=== PATIENT | female | born 1940 | race Caucasian/White ===

== ENCOUNTER → 2016-10-24 | Outpatient (CLI) | payer MEDICARE, MEDICAID ==
[~2016-10-24] VITALS: Ht 167.6 cm; Wt 104.5 kg
[~2016-10-24] MED LIST: AMLO-511 PO; BUDE10.22 IH; CHOL10002 PO; CLON0.1T13 PO; FLUT16H NASAL; LINA1TAB5 PO; OMEP20 PO; SINGULAR; TRAM50TA4 PO; VALS1TAB79 PO; VITA1TAB22 PO
[2016-10-24 13:25] VITALS: BP 103/60
== END | disposition home or self-care (01) ==
LOC: SRCNTR 13:01
PROVIDERS: ATTEND Internal Medicine Critical Care Medicine
DX: G47.33 Obstructive sleep apnea (adult) (pediatric) (principal); E11.9 Type 2 diabetes mellitus without complications; I10 Essential (primary) hypertension; J30.9 Allergic rhinitis, unspecified; J45.991 Cough variant asthma; M19.90 Unspecified osteoarthritis, unspecified site
CPT/HCPCS: G0463

== ENCOUNTER 2016-11-03 12:59 | Emergency (ER) | payer MEDICARE, OTHER ==
[~2016-11-03] VITALS: Ht 167.6 cm; Wt 105.0 kg
[~2016-11-03 12:59] MED LIST changes: -BUDE10.22 IH
[2016-11-03] MEDS ORDERED: SITA100 PO (13:08)
[2016-11-03 13:17] LABS: GLUCOSE,POINT OF CARE 151 MG/DL (70-110)
[2016-11-03] MEDS ORDERED: ACETAMINOPHEN/CODEINE 300-30 MG TABLET PO ONE (13:45)
[2016-11-03 16:15] VITALS: BP 140/86
== END 2016-11-03 16:28 | disposition home or self-care (01) ==
LOC: EMS 13:01
DX: M25.561 Pain in right knee (principal); M79.89 Other specified soft tissue disorders; J45.909 Unspecified asthma, uncomplicated; E11.9 Type 2 diabetes mellitus without complications; I10 Essential (primary) hypertension
CPT/HCPCS: 82962; 99284

== ENCOUNTER → 2017-02-24 | Outpatient (CLI) | payer MEDICARE, MEDICAID ==
[~2017-02-24] VITALS: Ht 167.6 cm; Wt 105.5 kg
[~2017-02-24] MED LIST changes: +IBUP-2070 PO; +INFLUENZA VIRUS VACCINE QVS 2017-18 (3YR+)/PF 60 MCG/0.5 ML SYRINGE IM ONE; +SITA100 PO
[2017-02-24 10:49] VITALS: BP 125/91
== END | disposition home or self-care (01) ==
LOC: SRCNTR 10:39
PROVIDERS: ATTEND Internal Medicine Critical Care Medicine
DX: J45.991 Cough variant asthma (principal); G47.33 Obstructive sleep apnea (adult) (pediatric); E11.9 Type 2 diabetes mellitus without complications; I10 Essential (primary) hypertension; J30.9 Allergic rhinitis, unspecified; M19.90 Unspecified osteoarthritis, unspecified site; Z87.891 Personal history of nicotine dependence
CPT/HCPCS: 90471 ×2; 96372; G0463

== ENCOUNTER → 2017-02-25 | Outpatient (CLI) | payer MEDICARE, MEDICAID ==
[~2017-02-25] VITALS: Ht 167.6 cm; Wt 104.5 kg
[~2017-02-25] MED LIST changes: -FLUT16H NASAL; -INFLUENZA VIRUS VACCINE QVS 2017-18 (3YR+)/PF 60 MCG/0.5 ML SYRINGE IM ONE; -SITA100 PO; -TRAM50TA4 PO
[2017-02-25 14:31] VITALS: BP 126/72
== END | disposition home or self-care (01) ==
LOC: SRCNTR 13:55
PROVIDERS: ATTEND Internal Medicine Cardiovascular Disease
DX: E11.9 Type 2 diabetes mellitus without complications (principal); E66.9 Obesity, unspecified; G47.30 Sleep apnea, unspecified; I10 Essential (primary) hypertension; J44.9 Chronic obstructive pulmonary disease, unspecified; E78.5 Hyperlipidemia, unspecified; M19.90 Unspecified osteoarthritis, unspecified site
CPT/HCPCS: 93005; G0463

== ENCOUNTER → 2017-05-06 | Outpatient (CLI) | payer MEDICARE, MEDICAID ==
[~2017-05-06] VITALS: Ht 167.6 cm; Wt 106.0 kg
[2017-05-06 14:35] VITALS: BP 118/69
== END | disposition home or self-care (01) ==
LOC: SRCNTR 14:24
PROVIDERS: ATTEND Internal Medicine Cardiovascular Disease
DX: I10 Essential (primary) hypertension (principal); E11.9 Type 2 diabetes mellitus without complications; E66.9 Obesity, unspecified; G47.30 Sleep apnea, unspecified; M19.90 Unspecified osteoarthritis, unspecified site
CPT/HCPCS: G0463

== ENCOUNTER → 2017-06-26 | Outpatient (CLI) | payer MEDICARE ==
[~2017-06-26] VITALS: Ht 167.6 cm; Wt 104.0 kg
[2017-06-26 11:33] VITALS: BP 131/84
== END | disposition home or self-care (01) ==
LOC: SRCNTR 11:19
PROVIDERS: ATTEND Internal Medicine Critical Care Medicine
DX: G47.33 Obstructive sleep apnea (adult) (pediatric) (principal); E11.9 Type 2 diabetes mellitus without complications; I10 Essential (primary) hypertension; J30.9 Allergic rhinitis, unspecified; J45.991 Cough variant asthma; M25.561 Pain in right knee
CPT/HCPCS: G0463

== ENCOUNTER → 2017-07-04 | Outpatient (CLI) | payer MEDICARE, MEDICAID ==
[~2017-07-04] VITALS: Ht 167.6 cm; Wt 104.0 kg
[2017-07-04 11:57] VITALS: BP 124/78
== END | disposition home or self-care (01) ==
LOC: SRCNTR 11:12
PROVIDERS: ATTEND Internal Medicine Cardiovascular Disease
DX: I10 Essential (primary) hypertension (principal); E11.9 Type 2 diabetes mellitus without complications; E66.9 Obesity, unspecified; G47.30 Sleep apnea, unspecified; M19.90 Unspecified osteoarthritis, unspecified site
CPT/HCPCS: G0463

== ENCOUNTER → 2017-08-20 | Outpatient (CLI) | payer MEDICARE, OTHER | END | disposition home or self-care (01) | LOC: RADPV 14:59 | PROVIDERS: ATTEND Family Medicine | DX: M85.842 Other specified disorders of bone density and structure, left hand (principal) ==

== ENCOUNTER → 2017-09-23 | Outpatient (CLI) | payer MEDICARE, OTHER | END | disposition home or self-care (01) | LOC: RADPV 09:44 | PROVIDERS: ATTEND Internal Medicine Critical Care Medicine | DX: I70.0 Atherosclerosis of aorta (principal); J44.9 Chronic obstructive pulmonary disease, unspecified | CPT/HCPCS: 71046 ==

== ENCOUNTER → 2017-09-29 | Outpatient (CLI) | payer MEDICARE ==
[~2017-09-29] VITALS: Ht 167.6 cm; Wt 104.0 kg
[2017-09-29 15:51] VITALS: BP 103/56
== END | disposition home or self-care (01) ==
LOC: SRCNTR 11:26
PROVIDERS: ATTEND Internal Medicine Critical Care Medicine
DX: I10 Essential (primary) hypertension (principal); E11.9 Type 2 diabetes mellitus without complications; G47.33 Obstructive sleep apnea (adult) (pediatric); J30.9 Allergic rhinitis, unspecified; J45.991 Cough variant asthma; Z83.3 Family history of diabetes mellitus; Z85.828 Personal history of other malignant neoplasm of skin
CPT/HCPCS: G0463

== ENCOUNTER → 2017-11-04 | Outpatient (CLI) | payer MEDICARE, MEDICAID ==
[~2017-11-04] VITALS: Ht 167.6 cm; Wt 103.0 kg
[~2017-11-04] MED LIST changes: +BUDE10.2 IH
[2017-11-04 14:09] VITALS: BP 112/67
== END | disposition home or self-care (01) ==
LOC: SRCNTR 13:45
PROVIDERS: ATTEND Internal Medicine Cardiovascular Disease
DX: I10 Essential (primary) hypertension (principal); G47.30 Sleep apnea, unspecified; E66.9 Obesity, unspecified; E11.9 Type 2 diabetes mellitus without complications; J44.9 Chronic obstructive pulmonary disease, unspecified; M19.90 Unspecified osteoarthritis, unspecified site
CPT/HCPCS: G0463

== ENCOUNTER → 2017-12-31 | Outpatient (CLI) | payer MEDICARE, OTHER | END | disposition home or self-care (01) | LOC: RADPV 09:04 | PROVIDERS: ATTEND Family Medicine | DX: Z01.818 Encounter for other preprocedural examination (principal); M48.062 Spinal stenosis, lumbar region with neurogenic claudication; I70.0 Atherosclerosis of aorta ==

== ENCOUNTER → 2018-01-06 | Outpatient (CLI) | payer MEDICARE, MEDICAID ==
[~2018-01-06] VITALS: Ht 167.6 cm; Wt 103.0 kg
[2018-01-06 15:16] VITALS: BP 126/79
== END | disposition home or self-care (01) ==
LOC: SRCNTR 14:34
PROVIDERS: ATTEND Internal Medicine Cardiovascular Disease
DX: M54.5 Low back pain (principal); M79.609 Pain in unspecified limb; E11.9 Type 2 diabetes mellitus without complications; I10 Essential (primary) hypertension; M19.90 Unspecified osteoarthritis, unspecified site; E66.9 Obesity, unspecified; E78.5 Hyperlipidemia, unspecified
CPT/HCPCS: G0463

== ENCOUNTER → 2018-04-09 | Outpatient (CLI) | payer MEDICARE, MEDICAID ==
[2018-04-09 14:17] VITALS: BP 101/59
== END | disposition home or self-care (01) ==
LOC: SRCNTR 14:14
PROVIDERS: ATTEND Internal Medicine Cardiovascular Disease
DX: I10 Essential (primary) hypertension (principal); E11.9 Type 2 diabetes mellitus without complications; J44.9 Chronic obstructive pulmonary disease, unspecified; M19.90 Unspecified osteoarthritis, unspecified site; E66.9 Obesity, unspecified; M54.5 Low back pain; E78.5 Hyperlipidemia, unspecified
CPT/HCPCS: G0463

== ENCOUNTER → 2018-06-17 | Outpatient (CLI) | payer MEDICARE, MEDICAID ==
[~2018-06-17] VITALS: Ht 167.6 cm; Wt 105.0 kg
[~2018-06-17] MED LIST changes: +CHOL100053 PO; +CYAN500011 PO; +GABA-531 PO; +IRBE300T19 PO
[2018-06-17 10:46] VITALS: BP 124/71
== END | disposition home or self-care (01) ==
LOC: SRCNTR 10:37
PROVIDERS: ATTEND Internal Medicine Cardiovascular Disease
DX: I10 Essential (primary) hypertension (principal); J44.9 Chronic obstructive pulmonary disease, unspecified; E11.9 Type 2 diabetes mellitus without complications; M19.90 Unspecified osteoarthritis, unspecified site; M54.5 Low back pain
CPT/HCPCS: G0463

== ENCOUNTER → 2018-07-03 | Outpatient (CLI) | payer MEDICARE, MEDICAID, OTHER ==
[~2018-07-03] VITALS: Ht 167.6 cm; Wt 105.5 kg
[~2018-07-03] MED LIST changes: -CHOL10002 PO; -VALS1TAB79 PO
[2018-07-03 14:35] VITALS: BP 114/72
== END | disposition home or self-care (01) ==
LOC: SRCNTR 14:26
PROVIDERS: ATTEND Internal Medicine Critical Care Medicine
DX: G47.33 Obstructive sleep apnea (adult) (pediatric) (principal); E11.9 Type 2 diabetes mellitus without complications
CPT/HCPCS: G0463

== ENCOUNTER → 2018-09-11 | Outpatient (CLI) | payer MEDICARE, MEDICAID ==
[~2018-09-11] VITALS: Ht 167.6 cm; Wt 104.0 kg
[2018-09-11 10:32] VITALS: BP 157/94
== END | disposition home or self-care (01) ==
LOC: SRCNTR 10:11
PROVIDERS: ATTEND Internal Medicine Cardiovascular Disease
DX: E11.9 Type 2 diabetes mellitus without complications (principal); J44.9 Chronic obstructive pulmonary disease, unspecified; M19.90 Unspecified osteoarthritis, unspecified site; I10 Essential (primary) hypertension
CPT/HCPCS: G0463

== ENCOUNTER → 2019-05-05 | Outpatient (CLI) | payer MEDICARE, OTHER ==
[~2019-05-05] VITALS: Ht 167.6 cm; Wt 94.0 kg
[~2019-05-05] MED LIST changes: -AMLO-511 PO; +AMLO5TAB9 PO; -CLON0.1T13 PO; +CLON0.2T PO; -GABA-531 PO; -IBUP-2070 PO; +INFLUENZA VIRUS VACCINE QVS 2019-20 (3YR+)/PF 60 MCG/0.5 ML SYRINGE IM ONE; +IRBE300T18 PO; -IRBE300T19 PO; +METO25XL PO; +MIRA25TA PO; +TRAM50TA4 PO
[2019-05-05 11:20] VITALS: BP 128/75
== END | disposition home or self-care (01) ==
LOC: SRCNTR 11:20
PROVIDERS: ATTEND Internal Medicine Critical Care Medicine
DX: Z23 Encounter for immunization (principal); I10 Essential (primary) hypertension; E11.9 Type 2 diabetes mellitus without complications; M19.90 Unspecified osteoarthritis, unspecified site
CPT/HCPCS: 90471; 90686; G0463

== ENCOUNTER → 2019-08-06 | Outpatient (CLI) | payer MEDICARE, OTHER ==
[~2019-08-06] VITALS: Ht 167.6 cm; Wt 91.0 kg
[~2019-08-06] MED LIST changes: -INFLUENZA VIRUS VACCINE QVS 2019-20 (3YR+)/PF 60 MCG/0.5 ML SYRINGE IM ONE
[2019-08-06 11:10] VITALS: BP 108/57
== END | disposition home or self-care (01) ==
LOC: SRCNTR 11:09
PROVIDERS: ATTEND Internal Medicine Cardiovascular Disease
DX: E11.9 Type 2 diabetes mellitus without complications (principal); J44.9 Chronic obstructive pulmonary disease, unspecified; G47.33 Obstructive sleep apnea (adult) (pediatric); I10 Essential (primary) hypertension; M19.90 Unspecified osteoarthritis, unspecified site; M54.5 Low back pain
CPT/HCPCS: G0463

== ENCOUNTER → 2019-08-17 | Outpatient (CLI) | payer MEDICARE, OTHER ==
[~2019-08-17] MED LIST changes: -TRAM50TA4 PO
== END | disposition home or self-care (01) ==
LOC: RADPV 11:19
PROVIDERS: ATTEND Nurse Practitioner
DX: Z01.811 Encounter for preprocedural respiratory examination (principal); M46.04 Spinal enthesopathy, thoracic region; I70.0 Atherosclerosis of aorta

== ENCOUNTER → 2019-12-15 | Outpatient (CLI) | payer MEDICARE, OTHER ==
[~2019-12-15] MED LIST changes: +AMLO-257 PO; -AMLO5TAB9 PO
== END | disposition home or self-care (01) ==
LOC: SRCNTR 11:47
PROVIDERS: ATTEND Internal Medicine Cardiovascular Disease
DX: J44.9 Chronic obstructive pulmonary disease, unspecified (principal); I10 Essential (primary) hypertension; E11.9 Type 2 diabetes mellitus without complications; M19.90 Unspecified osteoarthritis, unspecified site; M54.5 Low back pain; Z79.899 Other long term (current) drug therapy
CPT/HCPCS: 99441

== ENCOUNTER → 2020-02-02 | Outpatient (CLI) | payer MEDICARE, OTHER ==
[~2020-02-02] VITALS: Ht 154.9 cm; Wt 97.2 kg
[2020-02-02 10:49] VITALS: BP 125/76
== END | disposition home or self-care (01) ==
LOC: SRCNTR 10:49
PROVIDERS: ATTEND Internal Medicine Cardiovascular Disease
DX: J44.9 Chronic obstructive pulmonary disease, unspecified (principal); I10 Essential (primary) hypertension; E11.9 Type 2 diabetes mellitus without complications; M19.90 Unspecified osteoarthritis, unspecified site; Z79.899 Other long term (current) drug therapy
CPT/HCPCS: G0463; Z7500

== ENCOUNTER → 2020-04-03 | Outpatient (CLI) | payer MEDICARE, OTHER ==
[~2020-04-03] VITALS: Ht 167.6 cm; Wt 97.0 kg
[~2020-04-03] MED LIST changes: +ACET-66 PO; +INFLUENZA VIRUS VACCINE QVS 2020-21 (6MO+)/PF 60 MCG/0.5 ML SYRINGE IM ONE
[2020-04-03 10:55] VITALS: BP 128/64
== END | disposition home or self-care (01) ==
LOC: SRCNTR 10:50
PROVIDERS: ATTEND Internal Medicine Cardiovascular Disease
DX: J44.9 Chronic obstructive pulmonary disease, unspecified (principal); E11.9 Type 2 diabetes mellitus without complications; I10 Essential (primary) hypertension; M19.90 Unspecified osteoarthritis, unspecified site; C44.90 Unspecified malignant neoplasm of skin, unspecified; Z23 Encounter for immunization
CPT/HCPCS: 90471; 90686; G0463

== ENCOUNTER → 2020-05-23 | Outpatient (CLI) | payer MEDICARE, OTHER ==
[~2020-05-23] MED LIST changes: -INFLUENZA VIRUS VACCINE QVS 2020-21 (6MO+)/PF 60 MCG/0.5 ML SYRINGE IM ONE; -MIRA25TA PO
[2020-05-23 15:14] VITALS: BP 124/66
== END | disposition home or self-care (01) ==
LOC: SRCNTR 10:41
PROVIDERS: ATTEND Internal Medicine Critical Care Medicine
DX: G47.33 Obstructive sleep apnea (adult) (pediatric) (principal); J45.991 Cough variant asthma; J30.9 Allergic rhinitis, unspecified; I10 Essential (primary) hypertension; E11.9 Type 2 diabetes mellitus without complications
CPT/HCPCS: G0463

== ENCOUNTER → 2020-06-21 | Outpatient (CLI) | payer MEDICARE, OTHER ==
[~2020-06-21] VITALS: Ht 167.6 cm; Wt 99.0 kg
[2020-06-21 10:42] VITALS: BP 137/69
== END | disposition home or self-care (01) ==
LOC: SRCNTR 10:29
PROVIDERS: ATTEND Internal Medicine Cardiovascular Disease
DX: E11.9 Type 2 diabetes mellitus without complications (principal); I10 Essential (primary) hypertension; J44.9 Chronic obstructive pulmonary disease, unspecified; M19.91 Primary osteoarthritis, unspecified site; D04.9 Carcinoma in situ of skin, unspecified
CPT/HCPCS: G0463

== ENCOUNTER → 2020-08-23 | Outpatient (CLI) | payer MEDICARE, OTHER ==
[~2020-08-23] MED LIST changes: +HYDR25TA2 PO; +IBUP-2070 PO
== END | disposition home or self-care (01) ==
LOC: RADPV 11:17
PROVIDERS: ATTEND Internal Medicine Critical Care Medicine
DX: I70.0 Atherosclerosis of aorta (principal); J98.6 Disorders of diaphragm; J44.9 Chronic obstructive pulmonary disease, unspecified
CPT/HCPCS: 71046; 71046-TC

== ENCOUNTER → 2020-08-23 | Outpatient (CLI) | payer MEDICARE, OTHER ==
[~2020-08-23] VITALS: Ht 167.6 cm; Wt 98.3 kg
[2020-08-23 10:36] VITALS: BP 128/72
== END | disposition home or self-care (01) ==
LOC: SRCNTR 10:27
PROVIDERS: ATTEND Internal Medicine Cardiovascular Disease
DX: E11.9 Type 2 diabetes mellitus without complications (principal); J44.9 Chronic obstructive pulmonary disease, unspecified; I10 Essential (primary) hypertension; M19.90 Unspecified osteoarthritis, unspecified site
CPT/HCPCS: G0463

== ENCOUNTER → 2020-11-14 | Outpatient (CLI) | payer MEDICARE, OTHER ==
[~2020-11-14] VITALS: Ht 167.6 cm; Wt 98.4 kg
[2020-11-14 14:00] VITALS: BP 111/65
== END | disposition home or self-care (01) ==
LOC: SRCNTR 13:28
PROVIDERS: ATTEND Internal Medicine Cardiovascular Disease
DX: E11.9 Type 2 diabetes mellitus without complications (principal); J44.9 Chronic obstructive pulmonary disease, unspecified; I10 Essential (primary) hypertension; M19.90 Unspecified osteoarthritis, unspecified site; M54.5 Low back pain
CPT/HCPCS: G0463

== ENCOUNTER → 2021-01-26 | Outpatient (CLI) | payer MEDICARE, OTHER ==
[~2021-01-26] VITALS: Ht 167.6 cm; Wt 99.2 kg
[~2021-01-26] MED LIST changes: +DOCU-350 PO
[2021-01-26 11:33] VITALS: BP 130/70
== END | disposition home or self-care (01) ==
LOC: SRCNTR 11:17
PROVIDERS: ATTEND Internal Medicine Cardiovascular Disease
DX: E11.9 Type 2 diabetes mellitus without complications (principal); I10 Essential (primary) hypertension; J44.9 Chronic obstructive pulmonary disease, unspecified; M19.90 Unspecified osteoarthritis, unspecified site; M54.5 Low back pain
CPT/HCPCS: G0463

== ENCOUNTER → 2021-02-21 | Outpatient (CLI) | payer MEDICARE, OTHER ==
[~2021-02-21] VITALS: Ht 167.6 cm; Wt 100.0 kg
[~2021-02-21] MED LIST changes: +ATOR10TA84 PO
[2021-02-21 11:18] VITALS: BP 119/68
== END | disposition home or self-care (01) ==
LOC: SRCNTR 10:28
PROVIDERS: ATTEND Internal Medicine Critical Care Medicine
DX: G47.33 Obstructive sleep apnea (adult) (pediatric) (principal); E11.9 Type 2 diabetes mellitus without complications; I10 Essential (primary) hypertension; J30.9 Allergic rhinitis, unspecified; J45.991 Cough variant asthma
CPT/HCPCS: G0463; Z7500

== ENCOUNTER → 2021-03-27 | Outpatient (CLI) | payer MEDICARE, OTHER ==
[~2021-03-27] VITALS: Ht 167.6 cm; Wt 99.2 kg
[~2021-03-27] MED LIST changes: +INFLUENZA VIRUS VACCINE QVS 2021-22 (6MO+)/PF 60 MCG/0.5 ML SYRINGE IM. ONE
[2021-03-27 14:26] VITALS: BP 103/66
== END | disposition home or self-care (01) ==
LOC: SRCNTR 13:50
PROVIDERS: ATTEND Internal Medicine Cardiovascular Disease
DX: Z23 Encounter for immunization (principal); I10 Essential (primary) hypertension; E11.9 Type 2 diabetes mellitus without complications; J44.9 Chronic obstructive pulmonary disease, unspecified; M19.90 Unspecified osteoarthritis, unspecified site; M54.50 Low back pain, unspecified; G47.33 Obstructive sleep apnea (adult) (pediatric)
CPT/HCPCS: 90471; 90686; G0463

== ENCOUNTER → 2021-08-28 | Outpatient (CLI) | payer MEDICARE, OTHER ==
[~2021-08-28] VITALS: Ht 167.6 cm; Wt 95.5 kg
[~2021-08-28] MED LIST changes: -INFLUENZA VIRUS VACCINE QVS 2021-22 (6MO+)/PF 60 MCG/0.5 ML SYRINGE IM. ONE
[2021-08-28 14:57] VITALS: BP 91/65
== END | disposition home or self-care (01) ==
LOC: SRCNTR 14:33
PROVIDERS: ATTEND Internal Medicine Cardiovascular Disease
DX: I10 Essential (primary) hypertension (principal); E11.9 Type 2 diabetes mellitus without complications; J44.9 Chronic obstructive pulmonary disease, unspecified; M54.50 Low back pain, unspecified; M19.90 Unspecified osteoarthritis, unspecified site
CPT/HCPCS: G0463

== ENCOUNTER → 2021-10-30 | Outpatient (CLI) | payer MEDICARE, OTHER ==
[~2021-10-30] VITALS: Ht 167.6 cm; Wt 98.4 kg
[~2021-10-30] MED LIST changes: +BUDE10.26 IH; +HYDR-4870 PO; -HYDR25TA2 PO; +MONT-35 PO; +SENN8.6T90 PO
[2021-10-30 14:28] VITALS: BP 124/67
== END | disposition home or self-care (01) ==
LOC: SRCNTR 14:05
PROVIDERS: ATTEND Internal Medicine Cardiovascular Disease
DX: E11.9 Type 2 diabetes mellitus without complications (principal); I10 Essential (primary) hypertension; J44.9 Chronic obstructive pulmonary disease, unspecified; M54.50 Low back pain, unspecified; M19.90 Unspecified osteoarthritis, unspecified site
CPT/HCPCS: G0463; Z7500

== ENCOUNTER → 2021-11-02 | Outpatient (CLI) | payer MEDICARE, OTHER ==
[2021-11-02 10:56] VITALS: BP 121/67
== END | disposition home or self-care (01) ==
LOC: SRCNTR 10:29
PROVIDERS: ATTEND Internal Medicine Critical Care Medicine
DX: Z09 Encounter for follow-up examination after completed treatment for conditions other than malignant neoplasm (principal); I10 Essential (primary) hypertension; E11.9 Type 2 diabetes mellitus without complications; M19.90 Unspecified osteoarthritis, unspecified site; J30.9 Allergic rhinitis, unspecified; J45.991 Cough variant asthma; Z85.828 Personal history of other malignant neoplasm of skin
CPT/HCPCS: G0463

== ENCOUNTER → 2022-03-06 | Outpatient (CLI) | payer MEDICARE, OTHER ==
[~2022-03-06] MED LIST changes: -BUDE10.2 IH; -DOCU-350 PO; -HYDR-4870 PO; +HYDR25TA2 PO
[2022-03-06 10:55] VITALS: BP 127/71
== END | disposition home or self-care (01) ==
LOC: SRCNTR 10:37
PROVIDERS: ATTEND Internal Medicine Cardiovascular Disease
DX: I10 Essential (primary) hypertension (principal); Z09 Encounter for follow-up examination after completed treatment for conditions other than malignant neoplasm; E11.9 Type 2 diabetes mellitus without complications; J44.9 Chronic obstructive pulmonary disease, unspecified; M19.90 Unspecified osteoarthritis, unspecified site; E78.5 Hyperlipidemia, unspecified; M54.50 Low back pain, unspecified
CPT/HCPCS: G0463

== ENCOUNTER → 2022-04-30 | Outpatient (CLI) | payer MEDICARE, OTHER ==
[~2022-04-30] VITALS: Ht 167.6 cm; Wt 100.8 kg
[~2022-04-30] MED LIST changes: +ATOR10TA PO; -ATOR10TA84 PO; -HYDR25TA2 PO; -LINA1TAB5 PO; -METO25XL PO
[2022-04-30 14:27] VITALS: BP 114/62
== END | disposition home or self-care (01) ==
LOC: SRCNTR 14:05
PROVIDERS: ATTEND Internal Medicine Cardiovascular Disease
DX: Z09 Encounter for follow-up examination after completed treatment for conditions other than malignant neoplasm (principal); I10 Essential (primary) hypertension; E11.9 Type 2 diabetes mellitus without complications; J44.9 Chronic obstructive pulmonary disease, unspecified; E78.5 Hyperlipidemia, unspecified; M19.90 Unspecified osteoarthritis, unspecified site; M54.50 Low back pain, unspecified; K21.9 Gastro-esophageal reflux disease without esophagitis
CPT/HCPCS: G0463

== ENCOUNTER → 2022-07-22 | Outpatient (CLI) | payer MEDICARE, OTHER ==
[~2022-07-22] VITALS: Ht 167.6 cm; Wt 101.0 kg
[~2022-07-22] MED LIST changes: +FAMO20 PO; +IBUP-1492 PO; -IBUP-2070 PO; +METO25XL PO
[2022-07-22 10:22] VITALS: BP 134/74
== END | disposition home or self-care (01) ==
LOC: SRCNTR 10:02
PROVIDERS: ATTEND Internal Medicine Cardiovascular Disease
DX: R94.31 Abnormal electrocardiogram [ECG] [EKG] (principal); Z09 Encounter for follow-up examination after completed treatment for conditions other than malignant neoplasm; I10 Essential (primary) hypertension; E11.9 Type 2 diabetes mellitus without complications; J44.9 Chronic obstructive pulmonary disease, unspecified; M19.90 Unspecified osteoarthritis, unspecified site; E78.5 Hyperlipidemia, unspecified; M54.50 Low back pain, unspecified; K21.9 Gastro-esophageal reflux disease without esophagitis
CPT/HCPCS: 93005; G0463

== ENCOUNTER → 2022-11-19 | Outpatient (CLI) | payer MEDICARE, OTHER ==
[~2022-11-19] VITALS: Ht 167.6 cm; Wt 103.0 kg
[~2022-11-19] MED LIST changes: -IBUP-1492 PO; -OMEP20 PO; -SINGULAR; -VITA1TAB22 PO
[2022-11-19 15:09] VITALS: BP 129/72
== END | disposition home or self-care (01) ==
LOC: SRCNTR 14:23
PROVIDERS: ATTEND Internal Medicine Cardiovascular Disease
DX: Z09 Encounter for follow-up examination after completed treatment for conditions other than malignant neoplasm (principal); I10 Essential (primary) hypertension; E11.9 Type 2 diabetes mellitus without complications; J44.9 Chronic obstructive pulmonary disease, unspecified; M54.50 Low back pain, unspecified; E78.5 Hyperlipidemia, unspecified
CPT/HCPCS: G0463; Z7500

== ENCOUNTER → 2023-01-21 | Outpatient (CLI) | payer MEDICARE, OTHER ==
[~2023-01-21] VITALS: Ht 167.6 cm; Wt 102.0 kg
[~2023-01-21] MED LIST changes: -SENN8.6T90 PO
[2023-01-21 15:14] VITALS: BP 143/76; PULSE 74; RESP 16; TEMP 99.3; O2SAT 97
== END | disposition home or self-care (01) ==
LOC: SRCNTR 14:47
PROVIDERS: ATTEND Internal Medicine Cardiovascular Disease
DX: I10 Essential (primary) hypertension (principal); J44.9 Chronic obstructive pulmonary disease, unspecified; E78.5 Hyperlipidemia, unspecified; E11.9 Type 2 diabetes mellitus without complications; M54.50 Low back pain, unspecified; Z79.899 Other long term (current) drug therapy
CPT/HCPCS: G0463; Z7500

== ENCOUNTER → 2023-01-23 | Outpatient (CLI) | payer MEDICARE, OTHER ==
[~2023-01-23] MED LIST changes: -BUDE10.26 IH
[2023-01-23 09:25] LABS: BASOPHILS % (AUTO) 1.2 % (0.0-2.0); EOSINOPHILS % (AUTO) 2.2 % (1.0-6.0); HEMATOCRIT 37.7 % (36-46); HEMOGLOBIN 12.7 g/dL (12.0-16.0); LYMPHOCYTES # (AUTO) 1.5 K/uL (1.0-4.8); LYMPHOCYTES % (AUTO) 28.4 % (22.0-44.0); MEAN CORPUSCULAR HEMOGLOBIN 31.8 pg (26.0-34.0); MEAN CORPUSCULAR HGB CONC 33.6 G/dL (31.0-37.0); MEAN CORPUSCULAR VOLUME 95 fL (80-100); MONOCYTES # (AUTO) 0.6 K/uL (0.1-1.0); NEUTROPHILS # (AUTO) 2.9 K/uL (1.8-7.7); NEUTROPHILS % (AUTO) 57.2 % (40.0-70.0); PLATELET COUNT (AUTO) 284 K/uL (150-450); RED BLOOD CELL COUNT(AUTO) 3.99 MIL/uL (4.00-5.20); RED CELL DISTRIBUTION WIDTH 13.5 % (11.5-14.5)
[2023-01-23 09:31] LABS: HEMOGLOBIN A1C 6.4 % (3.8-5.6)
[2023-01-23 10:27] LABS: ALANINE AMINOTRANSFERASE 28 U/L (12-78); ALBUMIN 3.1 g/dL (3.4-5.0); ALKALINE PHOSPHATASE 86 U/L (46-116); ANION GAP 9 mmol/L (8-16); ASPARTATE AMINOTRANSFERASE 17 U/L (15-37); BILIRUBIN,TOTAL 0.4 mg/dL (0.1-1.0); CALCIUM, TOTAL 8.7 mg/dL (8.8-10.5); CARBON DIOXIDE 28 mmol/L (22-29); CHLORIDE 102 mmol/L (98-107); CHOL/HDL RATIO 2.9 (3.9-5.7); CHOLESTEROL 145 mg/dL (131-200); CREATININE 0.68 mg/dL (0.60-1.30); GLOMERULAR FILTR. RATE CALC > 60 mL/min (>60); GLUCOSE,RANDOM 139 mg/dL (70-110); HDL CHOLESTEROL 50 mg/dL (40-60); LDL CHOL (CALC.) 77 mg/dL (0-130); POTASSIUM 3.7 mmol/L (3.5-5.1); SODIUM SERUM 139 mmol/L (136-145); TOTAL PROTEIN, SERUM 6.4 g/dL (6.4-8.2); TRIGLYCERIDES 91 mg/dL (15-150)
== END | disposition home or self-care (01) ==
LOC: LABMN 08:47
PROVIDERS: ATTEND Internal Medicine Cardiovascular Disease
DX: E11.9 Type 2 diabetes mellitus without complications (principal); I10 Essential (primary) hypertension; E78.5 Hyperlipidemia, unspecified
CPT/HCPCS: 80053; 80061; 83036; 85025

== ENCOUNTER → 2023-02-18 | Outpatient (CLI) | payer MEDICARE, OTHER ==
[~2023-02-18] VITALS: Ht 167.6 cm; Wt 101.0 kg
[~2023-02-18] MED LIST changes: +LINA1TAB5 PO
[2023-02-18 15:23] VITALS: BP 137/57; PULSE 74; RESP 14; TEMP 98.2; O2SAT 97
== END | disposition home or self-care (01) ==
LOC: SRCNTR 14:49
PROVIDERS: ATTEND Internal Medicine Cardiovascular Disease
DX: Z09 Encounter for follow-up examination after completed treatment for conditions other than malignant neoplasm (principal); I25.10 Atherosclerotic heart disease of native coronary artery without angina pectoris; I10 Essential (primary) hypertension; E78.5 Hyperlipidemia, unspecified; J44.9 Chronic obstructive pulmonary disease, unspecified; M54.50 Low back pain, unspecified; G89.4 Chronic pain syndrome
CPT/HCPCS: G0463

== ENCOUNTER → 2023-04-22 | Outpatient (CLI) | payer MEDICARE, OTHER ==
[~2023-04-22] VITALS: Ht 167.6 cm; Wt 100.0 kg
[2023-04-22 13:58] VITALS: BP 128/57; PULSE 70; RESP 14; TEMP 98.5; O2SAT 97
== END | disposition home or self-care (01) ==
LOC: SRCNTR 13:38
PROVIDERS: ATTEND Internal Medicine Cardiovascular Disease
DX: Z09 Encounter for follow-up examination after completed treatment for conditions other than malignant neoplasm (principal); I10 Essential (primary) hypertension; E11.9 Type 2 diabetes mellitus without complications; E78.5 Hyperlipidemia, unspecified; J44.9 Chronic obstructive pulmonary disease, unspecified; M54.50 Low back pain, unspecified; G89.4 Chronic pain syndrome
CPT/HCPCS: G0463; Z7500

== ENCOUNTER → 2023-05-16 | Outpatient (CLI) | payer MEDICARE, OTHER ==
[~2023-05-16] VITALS: Ht 167.6 cm; Wt 98.0 kg
[2023-05-16 12:19] VITALS: BP 135/71; PULSE 86; RESP 16; TEMP 99.4; O2SAT 99
== END | disposition home or self-care (01) ==
LOC: SRCNTR 11:53
PROVIDERS: ATTEND Internal Medicine Pulmonary Disease
DX: G47.33 Obstructive sleep apnea (adult) (pediatric) (principal); E11.9 Type 2 diabetes mellitus without complications; I10 Essential (primary) hypertension; J30.9 Allergic rhinitis, unspecified; R05.9 Cough, unspecified
CPT/HCPCS: G0463; Z7500

== ENCOUNTER → 2023-06-24 | Outpatient (CLI) | payer MEDICARE, OTHER ==
[~2023-06-24] VITALS: Ht 167.6 cm; Wt 98.0 kg
[~2023-06-24] MED LIST changes: -IRBE300T18 PO; +IRBE300T26 PO
[2023-06-24 14:32] VITALS: BP 120/73; PULSE 82; RESP 18; TEMP 99.2; O2SAT 97
== END | disposition home or self-care (01) ==
LOC: SRCNTR 14:15
PROVIDERS: ATTEND Internal Medicine Cardiovascular Disease
DX: Z09 Encounter for follow-up examination after completed treatment for conditions other than malignant neoplasm (principal); J44.9 Chronic obstructive pulmonary disease, unspecified; I10 Essential (primary) hypertension; E11.9 Type 2 diabetes mellitus without complications; E78.5 Hyperlipidemia, unspecified
CPT/HCPCS: G0463; Z7500

== ENCOUNTER → 2023-08-07 | Outpatient (CLI) | payer MEDICARE, OTHER | END | disposition home or self-care (01) | LOC: LABMN 09:25 | PROVIDERS: ATTEND Internal Medicine Pulmonary Disease | DX: J44.1 Chronic obstructive pulmonary disease with (acute) exacerbation (principal); M47.814 Spondylosis without myelopathy or radiculopathy, thoracic region | CPT/HCPCS: 71046 ==

== ENCOUNTER → 2023-08-19 | Outpatient (CLI) | payer MEDICARE, OTHER ==
[~2023-08-19] VITALS: Ht 167.6 cm; Wt 98.5 kg
[2023-08-19 14:06] VITALS: BP 120/65; PULSE 82; RESP 15; TEMP 98.3; O2SAT 95
== END | disposition home or self-care (01) ==
LOC: SRCNTR 13:47
PROVIDERS: ATTEND Internal Medicine Cardiovascular Disease
DX: Z09 Encounter for follow-up examination after completed treatment for conditions other than malignant neoplasm (principal); E11.9 Type 2 diabetes mellitus without complications; I10 Essential (primary) hypertension; E78.5 Hyperlipidemia, unspecified; J44.9 Chronic obstructive pulmonary disease, unspecified; M54.50 Low back pain, unspecified; G89.4 Chronic pain syndrome
CPT/HCPCS: G0463; Z7500

== ENCOUNTER → 2023-09-16 | Outpatient (CLI) | payer MEDICARE, OTHER ==
[~2023-09-16] VITALS: Ht 167.6 cm; Wt 99.0 kg
[2023-09-16 10:47] VITALS: BP 120/66; PULSE 76; RESP 16; TEMP 98.4; O2SAT 97
== END | disposition home or self-care (01) ==
LOC: SRCNTR 10:27
PROVIDERS: ATTEND Internal Medicine Pulmonary Disease
DX: G47.33 Obstructive sleep apnea (adult) (pediatric) (principal); E11.9 Type 2 diabetes mellitus without complications; I10 Essential (primary) hypertension; J30.9 Allergic rhinitis, unspecified
CPT/HCPCS: G0463; Z7500

== ENCOUNTER → 2024-09-15 | Outpatient (CLI) | payer MEDICARE, OTHER ==
[~2024-09-15] VITALS: Ht 167.6 cm; Wt 96.0 kg
[~2024-09-15] MED LIST changes: +AZEL137S8 NASAL; +CETI-450 PO; +FLUT16SP NASAL; +GABA-1181 PO; +GABA-1216 PO; -LINA1TAB5 PO; +SEMA2PEN SQ
[2024-09-15 11:44] VITALS: BP 125/71; PULSE 81; RESP 18; TEMP 97.8; O2SAT 95
== END | disposition home or self-care (01) ==
LOC: SRCNTR 11:30
PROVIDERS: ATTEND Internal Medicine Pulmonary Disease
DX: G47.33 Obstructive sleep apnea (adult) (pediatric) (principal); E11.9 Type 2 diabetes mellitus without complications; I10 Essential (primary) hypertension; J45.991 Cough variant asthma; Z71.82 Exercise counseling; Z76.0 Encounter for issue of repeat prescription; Z79.85 Long-term (current) use of injectable non-insulin antidiabetic drugs; Z79.899 Other long term (current) drug therapy; Z80.3 Family history of malignant neoplasm of breast; Z82.49 Family history of ischemic heart disease and other diseases of the circulatory system; Z83.3 Family history of diabetes mellitus; Z85.828 Personal history of other malignant neoplasm of skin; Z90.49 Acquired absence of other specified parts of digestive tract; Z96.652 Presence of left artificial knee joint
CPT/HCPCS: G0463; Z7500

== ENCOUNTER → 2025-01-11 | Outpatient (CLI) | payer MEDICARE, OTHER ==
[~2025-01-11] VITALS: Ht 167.6 cm; Wt 94.3 kg
[~2025-01-11] MED LIST changes: -CETI-450 PO; +CETI10TA77 PO
[2025-01-11 14:18] VITALS: BP 141/78; PULSE 70; RESP 16; TEMP 97.7; O2SAT 95
== END | disposition home or self-care (01) ==
LOC: SRCNTR 14:09
PROVIDERS: ATTEND Internal Medicine Cardiovascular Disease
DX: I10 Essential (primary) hypertension (principal); E11.9 Type 2 diabetes mellitus without complications; E78.5 Hyperlipidemia, unspecified; J44.9 Chronic obstructive pulmonary disease, unspecified; M19.90 Unspecified osteoarthritis, unspecified site; Z79.85 Long-term (current) use of injectable non-insulin antidiabetic drugs; Z79.899 Other long term (current) drug therapy
CPT/HCPCS: G0463; Z7500